=== PATIENT | female | born 1990 | race Two or more races ===

== ENCOUNTER 2019-06-01 20:13 | Emergency (ER) | payer MEDICAID ==
[~2019-06-01] VITALS: Ht 185.4 cm; Wt 51.6 kg
[2019-06-01 20:16] VITALS: BP 135/92
--- NOTE | 2019-06-01 20:48 | NUR ---
PT HERE FOR right ankle swelling and left toe with blister. Sore throat, chest congestion. pt stated she used a dirty needle 5 days ago with meth. pt has autoimmune disease
== END 2019-06-01 21:21 ==
LOC: ED 21:15
DX: S90.822A Blister (nonthermal), left foot, initial encounter (principal); S90.821A Blister (nonthermal), right foot, initial encounter; J30.2 Other seasonal allergic rhinitis; R05 Cough; F17.210 Nicotine dependence, cigarettes, uncomplicated; X58.XXXA Exposure to other specified factors, initial encounter; Y93.89 Activity, other specified; Y92.89 Other specified places as the place of occurrence of the external cause; Y99.8 Other external cause status
CPT/HCPCS: 71046; 99283

== ENCOUNTER 2019-07-29 14:45 | Emergency (ER) | payer MEDICAID ==
[~2019-07-29] VITALS: Ht 185.4 cm; Wt 77.5 kg
--- NOTE | 2019-07-29 15:26 | NUR ---
PIPE CHANGER: Patient called from lobby to be roomed, no answer.
--- NOTE | 2019-07-29 15:37 | NUR ---
PT FROM LOBBY TO ROOM AT THIS TIME
--- NOTE | 2019-07-29 16:04 | NUR ---
28 YO FEMALE THAT CAME IN TODAY FOR BURNING AND PAIN WITH URINATION. PT CONNECTED TO MONITORS, VSS. RESTING ON GURNEY. CALL LIGHT WITHIN REACH
--- NOTE | 2019-07-29 16:04 | NUR ---
URINE SENT TO LAB AT THIS TIME
[2019-07-29 16:20] VITALS: BP 140/88
--- NOTE | 2019-07-29 16:20 | NUR ---
TASK RN: PT SITTING UP IN NO GONZALEZ NOTED. PT DENIES NEED FOR PAIN MEDICATIONS. UA PENDING.
[2019-07-29 16:35] LABS: HCG UR SG 1.011 (1.003-1.030); MICROSCOPIC AUTO
[2019-07-29 16:46] LABS: CULTURE INDICATED? YES
[2019-07-29] MEDS ORDERED: CEFTRIAXONE 1,000 MG ONE (17:13)
[2019-07-29] MEDS ORDERED: LIDOCAINE-MPF 1%, 2ML ONE (17:13)
[2019-07-29] MEDS ORDERED: CEFTRIAXONE 1,000 MG IM ONE (17:30)
--- NOTE | 2019-07-29 17:41 | NUR ---
Patient/Caregiver given discharge instructions and they have confirmed that they understand the instructions. Patient ambulatory with steady gait.
== END 2019-07-29 17:42 | disposition home or self-care (01) ==
LOC: ED 17:11
DX: N30.00 Acute cystitis without hematuria (principal)
CPT/HCPCS: 81001; 81025; 87086; 99283

== ENCOUNTER 2020-03-12 13:20 | Emergency (ER) | payer MEDICAID ==
[~2020-03-12] VITALS: Ht 185.4 cm; Wt 83.9 kg
[2020-03-12 13:23] VITALS: BP 127/84
--- NOTE | 2020-03-12 13:36 | NUR ---
29 Y/O FEMALE PRESENTS TO ED WITH C/O "I TOOK A TEST THREE DAYS AGO AND IT WAS POSITIVE. I'M MOVING TO [place] AND I JUST WANT TO MAKE SURE EVERYTHING IS OK." NADN. NO C/O ABDOMINAL PAIN, CRAMPING, VB, N/V/D, TRAUMA, SYNCOPE, CP, SOB. PT RESTING ON GURNEY. NADN.
[2020-03-12 14:20] LABS: BASOPHILS % (AUTO) 1 % (0-1); EOSINOPHILS # (AUTO) 0.35 x10^3/uL (0-0.4); EOSINOPHILS % (AUTO) 3 % (1-7); LYMPHOCYTES # (AUTO) 3.08 x10^3/uL (1-3.4); LYMPHOCYTES % (AUTO) 27 % (22-44); MD NO; MEAN CORPUSCULAR HEMOGLOBIN 26.9 pg (27.0-34.8); MEAN CORPUSCULAR HGB CONC 33.4 g/dL (32.4-35.8); MEAN CORPUSCULAR VOLUME 80.6 fL (80-100); MEAN PLATELET VOLUME 8.4 fL (7.4-10.4); MONOCYTES # (AUTO) 0.75 x10^3/uL (0.2-0.8); MONOCYTES % (AUTO) 7 % (2-9); NEUTROPHILS % (AUTO) 62 % (42-75); PLATELET COUNT 307 x10^3/uL (130-400); RED BLOOD COUNT 4.89 x10^6/uL (3.82-5.3)
[2020-03-12 14:32] LABS: ANION GAP 7 mmol/L (5-15); CALCIUM 8.8 mg/dL (8.5-10.1); CHLORIDE 111 mmol/L (98-107); CREATININE 0.57 mg/dL (0.55-1.02)
[2020-03-12 14:33] LABS: ALANINE AMINOTRANSFERASE 29 U/L (12-78); ALBUMIN 3.1 g/dL (3.4-5.0)
[2020-03-12 14:51] LABS: ALKALINE PHOSPHATASE 87 U/L (45-117); BILIRUBIN,TOTAL 0.2 mg/dL (0.2-1.0); TOTAL PROTEIN 7.4 g/dL (6.4-8.2)
[2020-03-12 15:07] LABS: MICROSCOPIC AUTO
[2020-03-12 15:10] LABS: CULTURE INDICATED? YES
== END 2020-03-12 15:51 | disposition home or self-care (01) ==
LOC: ED 14:31
DX: O26.891 Other specified pregnancy related conditions, first trimester (principal); F17.210 Nicotine dependence, cigarettes, uncomplicated; R10.2 Pelvic and perineal pain; Z3A.13 13 weeks gestation of pregnancy
CPT/HCPCS: 36415; 76801; 80053; 81001; 84702; 85025; 87077; 87086; 87186; 99284; 99406

== ENCOUNTER 2020-03-15 19:38 | Emergency (ER) | payer MEDICAID ==
[~2020-03-15] VITALS: Ht 185.4 cm; Wt 83.0 kg
--- NOTE | 2020-03-15 21:42 | NUR ---
LOBBY RN: PT. TO ROOM FROM LOBBY AT THIS TIME.
[2020-03-15] MEDS ORDERED: LIDOCAINE-MPF 1%, 5ML ONE (21:55)
[2020-03-15] MEDS ORDERED: LIDOCAINE-MPF 1%, 5ML INFIL ONE (22:00)
--- NOTE | 2020-03-15 22:48 | NUR ---
Assist RN: I and Anushka done. discharged with prescription and instruction. verbalized understanding.
[2020-03-15 22:50] VITALS: BP 118/76
== END 2020-03-15 22:52 | disposition home or self-care (01) ==
LOC: ED 21:46
DX: O26.891 Other specified pregnancy related conditions, first trimester (principal); L02.612 Cutaneous abscess of left foot; F17.210 Nicotine dependence, cigarettes, uncomplicated; Z3A.01 Less than 8 weeks gestation of pregnancy
CPT/HCPCS: 10060; 87070; 87147; 87205; 99284; 99406

== ENCOUNTER 2020-07-25 21:14 | Observation (INO) | payer MEDICAID ==
[~2020-07-25] VITALS: Ht 185.4 cm; Wt 90.9 kg
[2020-07-25 22:04] LABS: MICROSCOPIC INDICATED
[2020-07-25 22:27] VITALS: BP 131/77
[2020-07-25 22:31] LABS: AMPHETAMINE SCREEN, URINE Positive (Negative); BARBITURATE SCREEN, URINE Negative (Negative); BENZODIAZEPINE SCREEN, URINE Negative (Negative); CANNABINOID SCREEN, URINE Positive (Negative); COCAINE SCREEN, URINE Positive (Negative); METHADONE SCREEN, URINE Negative (Negative); OPIATE SCREEN, URINE Negative (Negative)
[2020-07-25 23:17] LABS: BASOPHILS # (AUTO) 0.04 x10^3/uL (0-0.1); BASOPHILS % (AUTO) 0 % (0-1); EOSINOPHILS # (AUTO) 0.22 x10^3/uL (0-0.4); EOSINOPHILS % (AUTO) 2 % (1-7); LYMPHOCYTES # (AUTO) 3.05 x10^3/uL (1-3.4); LYMPHOCYTES % (AUTO) 27 % (22-44); MD NO; MEAN CORPUSCULAR HEMOGLOBIN 26.7 pg (27.0-34.8); MEAN CORPUSCULAR HGB CONC 32.9 g/dL (32.4-35.8); MEAN CORPUSCULAR VOLUME 81.3 fL (80-100); MEAN PLATELET VOLUME 9.1 fL (7.4-10.4); MONOCYTES # (AUTO) 0.89 x10^3/uL (0.2-0.8); MONOCYTES % (AUTO) 8 % (2-9); NEUTROPHILS # (AUTO) 7.23 x10^3/uL (1.8-6.8); NEUTROPHILS % (AUTO) 63 % (42-75); PLATELET COUNT 277 x10^3/uL (130-400); RED BLOOD COUNT 3.69 x10^6/uL (3.82-5.3); RED CELL DISTRIBUTION WIDTH 14.8 % (9.6-15.2)
[2020-07-26 00:19] LABS: MICROSCOPIC AUTO
[2020-07-26] MEDS ORDERED: PREN1TAB60 PO (01:28)
[2020-07-26] MEDS ORDERED: PHEN-418 PO (01:29)
[2020-07-26] MEDS ORDERED: SULF1TAB23 PO (01:30)
[2020-07-26] MEDS ORDERED: PHENAZOPYRIDINE 200 MG TABLET PO ONE (01:30)
[2020-07-26] MEDS ORDERED: NITROFURANTOIN (MACROBID) 100 MG CAPSULE PO ONE (01:30)
[2020-07-26 01:54] LABS: ALANINE AMINOTRANSFERASE 23 U/L (12-78); ALBUMIN 2.4 g/dL (3.4-5.0); ANION GAP 8 mmol/L (5-15); CALCIUM 8.6 mg/dL (8.5-10.1); CHLORIDE 111 mmol/L (98-107); CREATININE 0.57 mg/dL (0.55-1.02)
[2020-07-26 01:56] LABS: ALKALINE PHOSPHATASE 189 U/L (45-117); BILIRUBIN,TOTAL 0.2 mg/dL (0.2-1.0); TOTAL PROTEIN 6.8 g/dL (6.4-8.2)
[2020-07-26] MEDS ORDERED: CEFTRIAXONE 1,000 MG IM ONE (02:00)
[2020-07-26 02:29] VITALS: BP 137/88
[2020-07-26 02:45] VITALS: BP 119/64
[2020-07-26] MEDS ORDERED: SULF1TAB24 PO (02:54)
[2020-07-26 03:04] VITALS: BP 119/64
== END 2020-07-26 05:54 | disposition home or self-care (01) ==
LOC: LDOP 21:14 → LDIP 07-26 02:59
PROVIDERS: ADMIT Obstetrics & Gynecology; ATTEND Obstetrics & Gynecology
DX: O26.893 Other specified pregnancy related conditions, third trimester (principal); Z20.828 Contact with and (suspected) exposure to other viral communicable diseases; R10.9 Unspecified abdominal pain; R30.0 Dysuria; R35.0 Frequency of micturition; R31.9 Hematuria, unspecified; R39.89 Other symptoms and signs involving the genitourinary system; M54.30 Sciatica, unspecified side; O99.343 Other mental disorders complicating pregnancy, third trimester; F41.9 Anxiety disorder, unspecified; O12.03 Gestational edema, third trimester; O99.333 Smoking (tobacco) complicating pregnancy, third trimester; F17.210 Nicotine dependence, cigarettes, uncomplicated; O99.323 Drug use complicating pregnancy, third trimester; F12.10 Cannabis abuse, uncomplicated; Z59.0 Homelessness; Z3A.28 28 weeks gestation of pregnancy; Z79.899 Other long term (current) drug therapy
CPT/HCPCS: 36415; 59025; 76819; 80053; 80307; 81001; 85025; 86592; 86762; 86850; 86900; 87086; 87147; 87340; 87491; 87591; 87635; 87806; 96372; G0378; J0696; J2790; G0475

== ENCOUNTER 2020-07-28 00:17 | Observation (INO) | payer MEDICAID ==
[~2020-07-28] VITALS: Ht 185.4 cm; Wt 91.0 kg
[~2020-07-28 00:17] MED LIST: PHEN-418 PO; PREN1TAB60 PO; SULF1TAB23 PO; SULF1TAB24 PO
[2020-07-28 00:34] VITALS: BP 128/73
[2020-07-28 01:05] LABS: MICROSCOPIC INDICATED
[2020-07-28 01:14] LABS: AMPHETAMINE SCREEN, URINE Positive (Negative); BARBITURATE SCREEN, URINE Negative (Negative); BENZODIAZEPINE SCREEN, URINE Negative (Negative); CANNABINOID SCREEN, URINE Positive (Negative); COCAINE SCREEN, URINE Negative (Negative); METHADONE SCREEN, URINE Negative (Negative); OPIATE SCREEN, URINE Negative (Negative)
[2020-07-28] MEDS ORDERED: PHENAZOPYRIDINE 200 MG TABLET PO ONE (01:30)
[2020-07-28] MEDS ORDERED: CEFTRIAXONE 1,000 MG IM ONE (01:30)
[2020-07-28] MEDS ORDERED: LIDOCAINE-MPF 1%, 5ML INFIL ONE (03:00)
[2020-07-28 08:12] LABS: MEAN CORPUSCULAR HEMOGLOBIN 26.3 pg (27.0-34.8); MEAN CORPUSCULAR HGB CONC 31.9 g/dL (32.4-35.8); MEAN CORPUSCULAR VOLUME 82.6 fL (80-100); MEAN PLATELET VOLUME 8.9 fL (7.4-10.4); PLATELET COUNT 311 x10^3/uL (130-400); RED BLOOD COUNT 4.06 x10^6/uL (3.82-5.3); RED CELL DISTRIBUTION WIDTH 14.6 % (9.6-15.2)
[2020-07-28 08:43] LABS: BASOPHILS # (AUTO) 0.07 x10^3/uL (0-0.1); BASOPHILS % (AUTO) 0 % (0-1); EOSINOPHILS # (AUTO) 0.27 x10^3/uL (0-0.4); EOSINOPHILS % (AUTO) 1 % (1-7); LYMPHOCYTES # (AUTO) 3.57 x10^3/uL (1-3.4); LYMPHOCYTES % (AUTO) 18 % (22-44); MD SCAN; MONOCYTES # (AUTO) 0.92 x10^3/uL (0.2-0.8); MONOCYTES % (AUTO) 5 % (2-9); NEUTROPHILS % (AUTO) 76 % (42-75)
[2020-07-28] MEDS ORDERED: PHENAZOPYRIDINE 100 MG TABLET PO SCH (10:00)
== END 2020-07-28 10:51 | disposition home or self-care (01) ==
LOC: LDOP 00:17 → UNDOADMOB 01:35 → EDIP 01:35 → LDIP 02:33
PROVIDERS: ADMIT Student in an Organized Health Care Education/Training Program; ATTEND Student in an Organized Health Care Education/Training Program
DX: O23.13 Infections of bladder in pregnancy, third trimester (principal); O9A.413 Sexual abuse complicating pregnancy, third trimester; O99.323 Drug use complicating pregnancy, third trimester; F14.10 Cocaine abuse, uncomplicated; F12.10 Cannabis abuse, uncomplicated; F15.10 Other stimulant abuse, uncomplicated; O99.343 Other mental disorders complicating pregnancy, third trimester; F31.9 Bipolar disorder, unspecified; Z3A.32 32 weeks gestation of pregnancy
CPT/HCPCS: 36415; 59025; 80307; 81001; 85025; 86803; 87086; 87521; 96372; G0378; J0696

== ENCOUNTER 2020-07-31 17:16 | Outpatient (CLI) | payer MEDICAID ==
[~2020-07-31] VITALS: Ht 185.4 cm; Wt 90.9 kg
[2020-07-31] MEDS ORDERED: AZITHROMYCIN 500 MG TABLET PO ONE (17:30)
== END 2020-07-31 17:49 | disposition home or self-care (01) ==
LOC: LDOP 17:16
PROVIDERS: ATTEND Obstetrics & Gynecology
DX: Z34.93 Encounter for supervision of normal pregnancy, unspecified, third trimester (principal); Z3A.33 33 weeks gestation of pregnancy
CPT/HCPCS: 59025

== ENCOUNTER 2020-08-13 16:03 | Outpatient (CLI) | payer MEDICAID ==
[~2020-08-13] VITALS: Ht 185.4 cm; Wt 90.9 kg
[2020-08-13 17:11] LABS: AMPHETAMINE SCREEN, URINE Negative (Negative); BARBITURATE SCREEN, URINE Negative (Negative); BENZODIAZEPINE SCREEN, URINE Negative (Negative); CANNABINOID SCREEN, URINE Positive (Negative); COCAINE SCREEN, URINE Negative (Negative); METHADONE SCREEN, URINE Negative (Negative); OPIATE SCREEN, URINE Negative (Negative)
== END 2020-08-13 16:40 | disposition home or self-care (01) ==
LOC: LDOP 16:03
PROVIDERS: ATTEND Obstetrics & Gynecology
DX: O98.213 Gonorrhea complicating pregnancy, third trimester (principal); Z3A.35 35 weeks gestation of pregnancy
CPT/HCPCS: 59025; 80307; 87491; 87591

== ENCOUNTER 2020-09-01 18:13 | Emergency (ER) | payer MEDICAID ==
[~2020-09-01] VITALS: Ht 185.4 cm; Wt 93.2 kg
--- NOTE | 2020-09-01 18:26 | NUR ---
REPORT TO LEANDRO CROW. PT RESTING IN POSITION OF COMFORT IN [facility]. FALL PRECAUTIONS IN PLACE. CALL LIGHT W/IN REACH. CONTINUOUS SPO2 MONITORING IN PLACE. EKG COMPLETED, PRESENTED TO ED MD WADE.
--- NOTE | 2020-09-01 18:36 | NUR ---
XRAY AT BEDSIDE.
[2020-09-01 19:05] LABS: ALANINE AMINOTRANSFERASE 19 U/L (12-78); ALBUMIN 2.5 g/dL (3.4-5.0); ANION GAP 8 mmol/L (5-15); CALCIUM 8.7 mg/dL (8.5-10.1); CHLORIDE 112 mmol/L (98-107); CREATININE 0.66 mg/dL (0.55-1.02)
[2020-09-01 19:07] LABS: ALKALINE PHOSPHATASE 321 U/L (45-117); BILIRUBIN,TOTAL 0.3 mg/dL (0.2-1.0); TOTAL PROTEIN 7.4 g/dL (6.4-8.2)
[2020-09-01 19:09] LABS: BASOPHILS % (AUTO) 0 % (0-1); EOSINOPHILS % (AUTO) 1 % (1-7); LYMPHOCYTES % (AUTO) 30 % (22-44); MEAN CORPUSCULAR HEMOGLOBIN 25.4 pg (27.0-34.8); MEAN CORPUSCULAR HGB CONC 32.7 g/dL (32.4-35.8); MEAN PLATELET VOLUME 9.4 fL (7.4-10.4); MONOCYTES % (AUTO) 7 % (2-9); NEUTROPHILS % (AUTO) 62 % (42-75); PLATELET COUNT 262 x10^3/uL (130-400); RED BLOOD COUNT 4.17 x10^6/uL (3.82-5.3); RED CELL DISTRIBUTION WIDTH 16.1 % (9.6-15.2)
[2020-09-01 19:12] LABS: MD NO
--- NOTE | 2020-09-01 19:14 | NUR ---
PT SLEEPING IN NAD, EVEN AND UNLABORED RESPIRATIONS. VSS. CALL LIGHT WITHIN REACH.
[2020-09-01 20:31] VITALS: BP 126/75
== END 2020-09-01 20:46 | disposition home or self-care (01) ==
LOC: ED 20:00
DX: O98.513 Other viral diseases complicating pregnancy, third trimester (principal); U07.1 COVID-19; R06.00 Dyspnea, unspecified; R05 Cough; Z3A.38 38 weeks gestation of pregnancy; F17.210 Nicotine dependence, cigarettes, uncomplicated; R94.31 Abnormal electrocardiogram [ECG] [EKG]
CPT/HCPCS: 36415; 71045; 80053; 85025; 87635; 93005; 99285; 99406

== ENCOUNTER 2020-09-14 00:58 | Inpatient (IN) | payer MEDICAID ==
[2020-09-14] VITALS (7 sets, daily range): BP systolic 136–171; BP diastolic 80–106
[~2020-09-14] VITALS: Ht 185.4 cm; Wt 95.5 kg
[2020-09-14] MEDS: LACTATED RINGERS 1,000 ML IV SCH ×2 (01:30→01:52)
[2020-09-14] MEDS ORDERED: LIDOCAINE 1%, 20ML ONE (01:41)
[2020-09-14] MEDS ORDERED: NEWBORN KIT ONE (01:41)
[2020-09-14] MEDS ORDERED: OXYTOCIN 30U/ 0.9% NaCL 500ML 500 ML ONE (01:41)
[2020-09-14] MEDS ORDERED: MISOPROSTOL 200 MCG TABLET ONE (01:41)
[2020-09-14] MEDS ORDERED: FENTANYL PF 100 MCG/2ML ONE (01:46)
[2020-09-14 01:52] LABS: AMPHETAMINE SCREEN, URINE Negative (Negative); BARBITURATE SCREEN, URINE Negative (Negative); BENZODIAZEPINE SCREEN, URINE Negative (Negative); CANNABINOID SCREEN, URINE Positive (Negative); COCAINE SCREEN, URINE Negative (Negative); METHADONE SCREEN, URINE Negative (Negative); OPIATE SCREEN, URINE Negative (Negative); PROTEIN/CREATININE RATIO,URINE 333 (0-200); TOTAL PROTEIN,URINE RANDOM 47 mg/dL (0-12)
[2020-09-14] MEDS ORDERED: FENTANYL PF 100 MCG/2ML IVPush PRN (02:00)
[2020-09-14] MEDS ORDERED: ONDANSETRON 2MG/ML, 2ML IVPush PRN (02:00)
[2020-09-14] MEDS ORDERED: TERBUTALINE 1 MG/ML, 1ML SQ PRN (02:00)
[2020-09-14] MEDS ORDERED: CALCIUM CARBONATE 500 MG TAB.CHEW PO PRN (02:00)
[2020-09-14] MEDS ORDERED: D5%-LACTATED RINGERS 1,000 ML IV SCH (02:00)
[2020-09-14] MEDS ORDERED: TERBUTALINE 1 MG/ML, 1ML IVPush PRN (02:00)
[2020-09-14] MEDS ORDERED: FENTANYL PF 100 MCG/2ML IV PRN (02:00)
[2020-09-14 02:16] LABS: BASOPHILS % (AUTO) 0 % (0-1); EOSINOPHILS % (AUTO) 1 % (1-7); LYMPHOCYTES % (AUTO) 28 % (22-44); MEAN CORPUSCULAR HEMOGLOBIN 24.9 pg (27.0-34.8); MEAN PLATELET VOLUME 10.1 fL (7.4-10.4); MONOCYTES % (AUTO) 7 % (2-9); NEUTROPHILS % (AUTO) 63 % (42-75); PLATELET COUNT 309 x10^3/uL (130-400); RED BLOOD COUNT 4.14 x10^6/uL (3.82-5.3); RED CELL DISTRIBUTION WIDTH 17.5 % (9.6-15.2)
[2020-09-14 02:20] LABS: ALANINE AMINOTRANSFERASE 14 U/L (12-78); ALBUMIN 2.6 g/dL (3.4-5.0); ANION GAP 7 mmol/L (5-15); BILIRUBIN, DIRECT 0.1 mg/dL (0.1-0.2); CALCIUM 8.5 mg/dL (8.5-10.1); CHLORIDE 111 mmol/L (98-107); CREATININE 0.61 mg/dL (0.55-1.02)
[2020-09-14 02:22] LABS: ALKALINE PHOSPHATASE 265 U/L (45-117); BILIRUBIN,TOTAL 0.3 mg/dL (0.2-1.0)
[2020-09-14 02:27] LABS: MICROSCOPIC INDICATED
[2020-09-14] MEDS ORDERED: FENTANYL/BUPIV./NS/PF 250 ML EPIDCONT ONE (02:30)
[2020-09-14] MEDS ORDERED: OXYTOCIN 30U/ 0.9% NaCL 500ML 500 ML IV PRN (02:30)
[2020-09-14] MEDS ORDERED: BUPIVACAINE 0.25% ONE ×2 (02:34→03:14)
[2020-09-14 02:40] LABS: MD SCAN
[2020-09-14] MEDS ORDERED: LACTATED RINGERS 1,000 ML IVBOLUS PRN (03:30)
[2020-09-14] MEDS ORDERED: FENTANYL/BUPIV./NS/PF 250 ML EPIDCONT SCH (03:30)
[2020-09-14] MEDS ORDERED: LACTATED RINGERS 1,000 ML IV SCH (03:30)
[2020-09-14] MEDS ORDERED: EPHEDRINE 50 MG/ML, 1ML IVPush PRN (03:30)
[2020-09-14] MEDS ORDERED: hydrALAzine 20 MG/ML, 1ML ONE (04:06)
[2020-09-14] MEDS ORDERED: LABETALOL 5MG/ML, 20ML ONE (04:13)
[2020-09-14] MEDS ORDERED: hydrALAzine 20 MG/ML, 1ML IVPush ONE (05:30)
[2020-09-14] MEDS ORDERED: LABETALOL 5MG/ML, 20ML IVPush PRN ×3 (05:30)
[2020-09-14] MEDS ORDERED: ONDANSETRON 2MG/ML, 2ML IV PRN (08:00)
[2020-09-14] MEDS ORDERED: RHOGAM FROM BLOOD BANK 1 NOTE EA IM/IV ONE (08:00)
[2020-09-14] MEDS ORDERED: HYDROcodone/APAP 5/325 TABLET PO PRN ×2 (08:00)
[2020-09-14] MEDS ORDERED: MISOPROSTOL 200 MCG TABLET PO PRN (08:00)
[2020-09-14] MEDS ORDERED: SIMETHICONE 80 MG CHEW TAB PO PRN (08:00)
[2020-09-14] MEDS ORDERED: CARBOPROST TROMETHAMINE 250 MCG/ML, 1ML IM PRN (08:00)
[2020-09-14] MEDS ORDERED: BISACODYL 10 MG SUPP PR PRN (08:00)
[2020-09-14] MEDS ORDERED: OXYTOCIN 30U/ 0.9% NaCL 500ML 500 ML IV SCH (08:00)
[2020-09-14 15:42] LABS: BASOPHILS % (AUTO) 0 % (0-1); EOSINOPHILS % (AUTO) 0 % (1-7); LYMPHOCYTES % (AUTO) 14 % (22-44); MEAN CORPUSCULAR HEMOGLOBIN 25.2 pg (27.0-34.8); MEAN CORPUSCULAR HGB CONC 32.3 g/dL (32.4-35.8); MEAN PLATELET VOLUME 9.7 fL (7.4-10.4); MONOCYTES % (AUTO) 8 % (2-9); NEUTROPHILS % (AUTO) 77 % (42-75); PLATELET COUNT 264 x10^3/uL (130-400); RED BLOOD COUNT 3.79 x10^6/uL (3.82-5.3); RED CELL DISTRIBUTION WIDTH 17.1 % (9.6-15.2)
[2020-09-14 16:10] LABS: MD SCAN
[2020-09-14] MEDS: DOCUSATE 100 MG CAPSULE PO PRN (16:53)
[2020-09-14] MEDS: PRENATAL VIT/IRON/FA 1 EACH TABLET PO SCH (16:53)
[2020-09-14] MEDS ORDERED: DIPH,PERTUSS(ACELL),TET VAC/PF NC IM-VACC ONE (20:00)
[2020-09-14] MEDS: IBUPROFEN 800 MG TABLET PO PRN (21:28)
[2020-09-15 04:15] VITALS: BP 128/81
[2020-09-15 08:00] VITALS: BP 154/91
[2020-09-15] MEDS: PRENATAL VIT/IRON/FA 1 EACH TABLET PO SCH (08:51)
[2020-09-15] MEDS: IBUPROFEN 800 MG TABLET PO PRN ×2 (08:51→23:35)
[2020-09-15] MEDS: DOCUSATE 100 MG CAPSULE PO PRN ×2 (08:51→23:35)
[2020-09-15] MEDS ORDERED: FLU VACC QS2020-21(6MOS UP)/PF 60MCG/0.5 ML SYR IM ONE (10:00)
[2020-09-15 19:45] VITALS: BP 136/82
[2020-09-16] MEDS: IBUPROFEN 800 MG TABLET PO PRN (07:44)
[2020-09-16] MEDS: DOCUSATE 100 MG CAPSULE PO PRN (07:44)
[2020-09-16] MEDS: PRENATAL VIT/IRON/FA 1 EACH TABLET PO SCH (07:44)
[2020-09-16 08:05] VITALS: BP 140/90
== END 2020-09-16 11:45 | disposition home or self-care (01) | DRG 805 ==
LOC: LDOP 00:58 → LDIP 01:41 → 2NW 10:13
PROVIDERS: ADMIT Obstetrics & Gynecology; ATTEND Obstetrics & Gynecology
PROC: 10E0XZZ Delivery of Products of Conception, External Approach (ICD-10-PCS; principal; 2020-09-14)
PROC: 0KQM0ZZ Repair Perineum Muscle, Open Approach (ICD-10-PCS; 2020-09-14)
PROC: 3E0234Z Introduction of Serum, Toxoid and Vaccine into Muscle, Percutaneous Approach (ICD-10-PCS; 2020-09-14)
PROC: 3E0R3BZ Introduction of Anesthetic Agent into Spinal Canal, Percutaneous Approach (ICD-10-PCS; 2020-09-14)
PROC: 00HU33Z Insertion of Infusion Device into Spinal Canal, Percutaneous Approach (ICD-10-PCS; 2020-09-14)
DX: O69.81X0 Labor and delivery complicated by cord around neck, without compression, not applicable or unspecified (principal); U07.1 COVID-19; Z37.0 Single live birth; O98.52 Other viral diseases complicating childbirth; Z3A.39 39 weeks gestation of pregnancy; Z88.8 Allergy status to other drugs, medicaments and biological substances; O70.1 Second degree perineal laceration during delivery
CPT/HCPCS: 36415; 80053; 80307; 81001; 82248; 82570; 84112; 84156; 84550; 85025; 85461; 86592; 86850; 86900; 90686; 90715; G0378; J2790; J3010; J0360; J2590; J7120

== ENCOUNTER 2021-04-09 17:05 | Emergency (ER) | payer MEDICAID ==
[~2021-04-09] VITALS: Ht 185.4 cm; Wt 95.3 kg
[~2021-04-09 17:05] MED LIST changes: +SULF-23 PO; -SULF1TAB24 PO
[2021-04-09 17:10] VITALS: BP 151/81
--- NOTE | 2021-04-09 18:15 | NUR ---
PT C/O WRIST ARM PAIN X MONTHS, DENIES TRAUMA/ INJURY. STS IT STARTED IN
[2021-04-09] MEDS ORDERED: ACETAMINOPHEN 500 MG TABLET PO ONE (19:00)
[2021-04-09] MEDS ORDERED: ACETAMINOPHEN 500 MG TABLET ONE (19:12)
--- NOTE | 2021-04-09 19:56 | NUR ---
wrist splint placed to right hand and pt tolerated well. f/u and d/c instructions given to pt and she v/u. pt medicated per emar and tolerated well. pt d/c'd without issue.
== END 2021-04-09 19:58 | disposition home or self-care (01) ==
LOC: ED 18:38
DX: G56.01 Carpal tunnel syndrome, right upper limb (principal)
CPT/HCPCS: 29125; 99283

== ENCOUNTER 2021-06-18 22:01 | Emergency (ER) | payer MEDICAID ==
[~2021-06-18] VITALS: Ht 185.4 cm; Wt 90.8 kg
[2021-06-18 22:04] VITALS: BP 141/101
--- NOTE | 2021-06-18 22:20 | NUR ---
PT AMBULATED TO BATHROOM WITH STEADY GAIT. OBTAINING UA.
[2021-06-18] MEDS ORDERED: CEFTRIAXONE 1,000 MG IM ONE (22:30)
--- NOTE | 2021-06-18 22:47 | NUR ---
TASK RN: PT REPORTS SHE HAS TO LEAVE AND WILL BE BACK TOMORROW. PT LEFT.
== END 2021-06-18 22:50 | disposition left against medical advice (07) ==
LOC: ED 22:30
DX: A56.8 Sexually transmitted chlamydial infection of other sites (principal); A54.9 Gonococcal infection, unspecified
CPT/HCPCS: 99283